=== PATIENT | male | born 1950 | race Caucasian/White ===

== ENCOUNTER 2018-07-04 00:11 | Day surgery (SDC) | payer MEDICARE, BC ==
[~2018-07-04] VITALS: Ht 185.4 cm; Wt 108.4 kg
[~2018-07-04 00:11] MED LIST: AMLO-127 PO; APIX5TAB PO; ASCO-191 PO; CHOL10005 PO; GLUC-125 PO; GLUC100026 PO; LISI-374 PO; MAGN500C10 PO; MELA3TAB31 PO; NORT75CA PO; PANT40TA65 PO; VITA1CAP46 PO
[2018-07-04 05:30] VITALS: BP 143/98
[2018-07-04] MEDS ORDERED: LIDOCAINE/SOD BICARB 8.4% SYR ID ONE (06:00)
[2018-07-04] MEDS ORDERED: ROPIVACAINE/EPI/CLONIDINE/KET 50 ML SYRINGE INJ ONE (06:00)
[2018-07-04] MEDS ORDERED: NORMOSOL R SOLN(*) 1000 ML BAG 1,000 ML IV PRN (06:00)
[2018-07-04] MEDS ORDERED: ceFAZolin(*) 2GM/D5W 50ML 50 ML IVPB ONE (06:00)
[2018-07-04] MEDS ORDERED: MIDAZOLAM 2 MG/2 ML VIAL IVP PRN (06:00)
[2018-07-04] MEDS ORDERED: CELECOXIB 200 MG CAP PO ONE (06:00)
[2018-07-04] MEDS ORDERED: fentaNYL CITR 100 MCG/2 ML AMP ONE ×3 (06:41→09:42)
[2018-07-04] MEDS ORDERED: KETAMINE HCL-NS 50 MG/5 ML SYR ONE (06:42)
[2018-07-04] MEDS ORDERED: ONDANSETRON 4 MG/2 ML VIAL ONE (06:42)
[2018-07-04] MEDS ORDERED: PROPOFOL EMUL(*) 10MG/ML 20 ML 20 ML ONE (06:42)
[2018-07-04] MEDS ORDERED: DEXAMETHASONE SOD PHOS 10MG/ML ONE (06:42)
[2018-07-04] MEDS ORDERED: LIDOCAINE MPF 1% 5 ML VIAL ONE (06:42)
[2018-07-04] MEDS ORDERED: ROPIVACAINE 0.2% 20 ML VIAL ONE (06:47)
[2018-07-04] MEDS ORDERED: LACTATED RINGER 3000 ML BAG IR ONE (08:30)
[2018-07-04] MEDS ORDERED: KETOROLAC 30 MG/ML VIAL ONE (08:48)
[2018-07-04] MEDS ORDERED: OXYC-865 PO (08:58)
[2018-07-04] MEDS ORDERED: ACETAMINOPHEN(*)1000 MG/100 ML 100 ML IVPB ONE (09:08)
[2018-07-04] MEDS ORDERED: HYDROmorphone HCL 2 MG/ML SDV ONE (09:13)
--- NOTE | 2018-07-04 09:14 | OPERATIVE REPORT 1 ---
EVENT DATE: July 04, 2018 SURGEON: Scott De Jesus MD ANESTHESIOLOGIST: Medhat Muse MD ANESTHESIA: General. PET CREMATORY WORKER: Charles Hamm PA-C PREOPERATIVE DIAGNOSIS Right shoulder rotator cuff tear as well as labral fraying, cartilage damage, biceps irritation and impingement. POSTOPERATIVE DIAGNOSIS Right shoulder rotator cuff tear as well as labral fraying, cartilage damage, biceps irritation and impingement. PROCEDURE PERFORMED 1. Right shoulder rotator cuff repair of both the subscapularis as well as the supraspinatus. 2, Labral debridement. 3, Biceps tenotomy. 4, Subacromial decompression. 5, Extensive debridement throughout the joint. FINDINGS Patient has a torn rotator cuff that was amenable for repair, both the subscap and the supraspinatus. ESTIMATED BLOOD LOSS Minimal. DRAINS None. COMPLICATIONS None. IMPLANTS USED Two JuggerKnot [employer] anchors, which were double loaded and placed in the subscap and the supraspinatus respectively. SPECIMENS None. TOURNIQUET TIME Not applicable. INDICATIONS AND HISTORY This patient is a 67-year-old male who presented to my clinic for evaluation of right shoulder pain and irritation going on for some time. He continued to have pain and irritation despite conservative management. An MRI indicated that he did have a subscap tear and partial tear of the supraspinatus so, therefore, we talked to him about the implications of this as well as the treatment options. He stated he would like to go ahead with a rotator cuff repair, labral debridement, biceps tenotomy and subacromial decompression and extensive debridement throughout the joint to try to give him some pain relief. He understood there is no guarantee associated with this and so we went over the risks and benefits associated with this and informed consent was obtained. DESCRIPTION OF PROCEDURE The patient was brought into the operating room. He and the procedure were both verified. He was placed supine on the operating table and induced intubated by anesthesia. The right upper extremity was then prepped and draped in the usual fashion and a time-out was observed, verifying the correct patient and procedure. The standard incisions were made over the anterior aspect and posterior aspect of the shoulder. The scope was inserted posteriorly and diagnostic arthroscopy was performed through the intra-articulation portion of the joint. I then performed chondroplasty and synovectomy and also debrided the labrum through this area and performed an extensor debridement throughout the joint. I also performed a biceps tenotomy and the biceps then fell into a natural position into the groove and the labrum fell back to a more natural position. Also, there was noted to be a pretty large subscap tear so, therefore, we went ahead with repair on this by freshening up the area, decorticating the bone and then placing a Bio[employer] JuggerKnot anchor into this area and then placing two of the limbs through the subscap in order to bring it back up and repair it. Once this had adequate repair, there were no signs or problems with internal or external rotation of the arm so, therefore, I then went up into the area where the supraspinatus is. Once on the supraspinatus, I was able to debride the undersurface and then tag it with a 0 PDS through a needle to make it amenable for subsequent repair. There was also some calcification in this area. I then went up in the subacromial space, performed a complete decompression. He had a subacromial decompression with removal of the anterior acromial bone spur and some of the calcification from the supraspinatus tendon and also the bursal irritation associated with it. I then identified the tag stitch and there was some significant calcification over this area. Once I took this off, it was debrided until about 80% of the tendon was gone so, therefore, I took down the last 20% and proceeded with the repair. This was done by decorticating the bone a little bit in this area and placing another 2.9 JuggerKnot anchor into this area and then placing all four limbs of the sutures in a horizontal mattress type fashion across the U-shape tear. Once I did this, this pulled the tear back and I tied it over without any difficulty. We then debrided the rest of the inflammation and irritation associated with this and then did another diagnostic arthroscopy. There were no further signs of gapping or irritation associated with this so, therefore, I then was able to remove all instrumentation, drain the fluid out of the shoulder, close the portal sites with a 4-0 Monocryl and then anesthetize with ropivacaine dressing with Steri-Strips, gauze, 4x4's and a soft dressing. The patient was put in abduction sling and then awakened, extubated and transferred to the PACU in stable condition. MINESH
[2018-07-04] MEDS ORDERED: oxyCODONE HCL 5 MG CAP ONE (09:59)
[2018-07-04 10:21] VITALS: BP 134/92
[2018-07-04 10:45] VITALS: BP 134/84
[2018-07-04 11:45] VITALS: BP 128/92
[2018-07-04 11:59] VITALS: BP 133/82
[2018-07-04 12:02] VITALS: BP 144/89
--- NOTE | 2018-07-04 14:58 | NUR ---
1255- SBAR RECEIVED FROM KATHRYN LAGUNAS. 1300- PT. O2 AT 97% ON ROOM AIR SO WE STARTED THE PROCESS OF GETTING HIM READY TO GO HOME. 1315- STARTED HELPING THE PT. GET DRESSED SHOWING THEM HOW TO PROPERLY GET DRESSED WITH THE SHOULDER AND EXPLAINING TO THEM THE PROPER WAY TO GET UNDRESSED. I ANSWERED ALL OF THEIR QUESTIONS AND THEY STATED UNDERSTANDING. 1330- I WENT OVER DISCHARGE INSTRUCTIONS WITH THE PT. AND HIS AND THEY STATED UNDERSTANDING. 1340- I TOOK THE PT. IV OUT AND APPLIED A PRESSURE DRESSING TO THE SITE. 1345- I ESCORTED THE PT. OUT TO HIS VEHICLE ACCOMPANIED BY HIS .
--- NOTE | 2018-07-04 15:47 | NUR ---
1021 PT REC'D IN SD FROM SAME NURSE CARING FOR HIM IN PACU, VSS, PAIN 5/10, TOLERABLE, , CRISTOPHER, AT BEDSIDE PLACED HEARING AIDS IN B EARS, HELP FROM , TOLERATING COFFEE ON 4L NC 1045 DOWN TO 3L NC, VSS, PT INSTRUCTED IN IS, USING WELL AND OFTEN 1115 PAIN 4/10, VSS, DOWN TO 3L NC, PT TOLERATING CHEESE, CRACKER, JELLO, AND COFFEE 1127 PC TO [facility] AT [facility] RE: ANTICOAGULATION PLAN, INSTRUCTED TO FOLLOW PCP INSTRUCTIONS TO RESTART ELIQUIS IN 48 HRS, TRANSCRIBED TO BLUE ANTI-COAG SHEET 1130 DOWN TO 1.5L, SATTING WELL 1145 DOWN TO 1LNC, CONTINUES TO USE IS 1150 RCISTOPHER OUT TO FILL ORAL PAIN PILLS 1159 ORTHOSTATIC VITALS STABLE, DENIES ANY DIZZINESS/LIGHTHEADEDNESS 1202 PT UP TO RESTROOM, D/C IV FROM TUBING, 350ML UP, STEADY ON FEET, VOIDED WITHOUT DIFFICULTY 1210 PAIN 4/10, PUT BACK ON 1L NC, 88%RA AFTER ACTIVITY 1223 DOWN TO 0.5 L NC 1245 PLACED ON RA, PT CONTINUES TO COUGH/DEEP BREATH/USE IS 1255 SBAR REPORT TO Hayes ERVIN RN, UPDATED PT AND IN CHANGE OF NURSE
== END 2018-07-04 10:21 | disposition home or self-care (01) ==
LOC: OR 00:11
PROVIDERS: ATTEND Orthopaedic Surgery
DX: M75.101 Unspecified rotator cuff tear or rupture of right shoulder, not specified as traumatic (principal); M75.41 Impingement syndrome of right shoulder
CPT/HCPCS: 29826; 29827; A4565; A9270; C1713; J0131; J1100; J1170; J1885; J2001; J2405; J2704; J2795; J3010; J3490; J0690